=== PATIENT | female | born 1965 | race Two or more races ===

== ENCOUNTER 2017-07-13 11:14 | Outpatient (CLI) | payer OTHER | END 2017-07-13 11:24 | disposition home or self-care (01) | LOC: LAB 11:14 | DX: D50.9 Iron deficiency anemia, unspecified (principal); E03.8 Other specified hypothyroidism; E78.2 Mixed hyperlipidemia; I11.9 Hypertensive heart disease without heart failure; E56.8 Deficiency of other vitamins; N39.0 Urinary tract infection, site not specified; Z12.11 Encounter for screening for malignant neoplasm of colon; R19.5 Other fecal abnormalities; E55.9 Vitamin D deficiency, unspecified; N19 Unspecified kidney failure; R80.9 Proteinuria, unspecified ==

== ENCOUNTER 2017-07-13 11:32 | Outpatient (CLI) | payer OTHER | END 2017-07-13 11:39 | disposition home or self-care (01) | LOC: RAD 11:32 | DX: I11.9 Hypertensive heart disease without heart failure (principal) ==

== ENCOUNTER 2017-11-20 06:16 | Outpatient (CLI) | payer OTHER | END 2017-11-20 07:31 | disposition home or self-care (01) | LOC: LAB 06:16 | DX: E05.80 Other thyrotoxicosis without thyrotoxic crisis or storm (principal) ==

== ENCOUNTER 2018-02-01 09:44 | Outpatient (CLI) | payer OTHER | END 2018-02-01 14:08 | disposition home or self-care (01) | LOC: LAB 09:44 | DX: E55.9 Vitamin D deficiency, unspecified (principal); N80.3 Endometriosis of pelvic peritoneum; N83.201 Unspecified ovarian cyst, right side; C56.9 Malignant neoplasm of unspecified ovary; N83.202 Unspecified ovarian cyst, left side ==

== ENCOUNTER 2018-02-08 08:48 | Outpatient (CLI) | payer OTHER | END 2018-02-08 09:02 | disposition home or self-care (01) | LOC: SONOGRAMA 08:48 → MAMO-SONO 09:45 | DX: N94.6 Dysmenorrhea, unspecified (principal); D25.1 Intramural leiomyoma of uterus ==

== ENCOUNTER 2018-07-02 14:29 | Outpatient (CLI) | payer OTHER | END 2018-07-02 14:42 | disposition home or self-care (01) | LOC: LAB 14:29 | DX: Z11.3 Encounter for screening for infections with a predominantly sexual mode of transmission (principal) ==

== ENCOUNTER → 2018-10-28 | Outpatient (CLI) | payer OTHER | END | disposition home or self-care (01) | LOC: MAMO-SONO 13:15 → RAD 13:39 → SONOGRAMA 13:39 | DX: K59.04 Chronic idiopathic constipation (principal); R10.30 Lower abdominal pain, unspecified; N83.00 Follicular cyst of ovary, unspecified side; N94.6 Dysmenorrhea, unspecified; D25.9 Leiomyoma of uterus, unspecified ==

== ENCOUNTER 2019-03-19 08:25 | Outpatient (CLI) | payer OTHER | END 2019-03-20 06:10 | disposition home or self-care (01) | LOC: MAMO-SONO 08:25 | DX: N64.51 Induration of breast (principal); Z12.31 Encounter for screening mammogram for malignant neoplasm of breast; Z87.898 Personal history of other specified conditions ==

== ENCOUNTER → 2019-03-21 12:04 | Outpatient (CLI) | payer OTHER | END | disposition home or self-care (01) | LOC: LAB 12:04 | DX: N92.5 Other specified irregular menstruation (principal); N95.1 Menopausal and female climacteric states ==

== ENCOUNTER 2019-09-12 08:36 | Outpatient (CLI) | payer OTHER | END 2019-09-12 12:30 | disposition home or self-care (01) | LOC: LAB 08:36 | DX: Z20.820 Contact with and (suspected) exposure to varicella (principal); Z20.5 Contact with and (suspected) exposure to viral hepatitis ==

== ENCOUNTER 2020-01-28 14:41 | Outpatient (CLI) | payer OTHER | END 2020-01-28 14:47 | disposition home or self-care (01) | LOC: LAB 14:41 | DX: E55.9 Vitamin D deficiency, unspecified (principal); Z78.0 Asymptomatic menopausal state; N83.209 Unspecified ovarian cyst, unspecified side; E05.00 Thyrotoxicosis with diffuse goiter without thyrotoxic crisis or storm; N80.3 Endometriosis of pelvic peritoneum; N39.0 Urinary tract infection, site not specified ==

== ENCOUNTER → 2020-02-04 10:00 | Outpatient (CLI) | payer OTHER | END | disposition home or self-care (01) | LOC: PPH VACUNA 10:00 | DX: Z23 Encounter for immunization (principal) ==

== ENCOUNTER → 2020-02-05 | Outpatient (CLI) | payer OTHER | END | disposition home or self-care (01) | LOC: SONOGRAMA 10:10 | DX: N92.0 Excessive and frequent menstruation with regular cycle (principal); N83.00 Follicular cyst of ovary, unspecified side; N94.4 Primary dysmenorrhea ==

== ENCOUNTER 2020-09-27 06:23 | Outpatient (CLI) | payer OTHER | END 2020-09-27 06:27 | disposition home or self-care (01) | LOC: LAB 06:23 | DX: Z20.828 Contact with and (suspected) exposure to other viral communicable diseases (principal) ==

== ENCOUNTER → 2020-12-28 06:12 | Outpatient (CLI) | payer OTHER | END | disposition home or self-care (01) | LOC: LAB 06:12 | DX: N95.1 Menopausal and female climacteric states (principal); N80.3 Endometriosis of pelvic peritoneum; N83.209 Unspecified ovarian cyst, unspecified side; E05.00 Thyrotoxicosis with diffuse goiter without thyrotoxic crisis or storm; E55.9 Vitamin D deficiency, unspecified ==

== ENCOUNTER 2021-01-03 12:34 | Outpatient (CLI) | payer OTHER | END 2021-01-03 14:13 | disposition home or self-care (01) | LOC: MAMO-SONO 12:34 | DX: N64.51 Induration of breast (principal); Z12.31 Encounter for screening mammogram for malignant neoplasm of breast; D25.9 Leiomyoma of uterus, unspecified ==

== ENCOUNTER → 2021-02-07 | Outpatient (CLI) | payer OTHER | END | disposition home or self-care (01) | LOC: PPH VACUNA 08:00 | PROVIDERS: ATTEND Emergency Medicine Pediatric Emergency Medicine | DX: Z23 Encounter for immunization (principal) ==

== ENCOUNTER 2021-02-24 08:00 | Outpatient (CLI) | payer OTHER | END 2021-02-24 08:30 | disposition home or self-care (01) | LOC: PPH VACUNA 08:00 | PROVIDERS: ATTEND Emergency Medicine Pediatric Emergency Medicine | DX: Z23 Encounter for immunization (principal) ==

== ENCOUNTER 2021-11-23 08:37 | Outpatient (CLI) | payer OTHER | END 2021-11-23 08:40 | disposition home or self-care (01) | LOC: LAB 08:37 | DX: U07.1 COVID-19 (principal) ==

== ENCOUNTER 2022-01-24 08:00 | Outpatient (CLI) | payer OTHER | END 2022-01-24 08:05 | disposition home or self-care (01) | LOC: PPH VACUNA 08:00 | PROVIDERS: ATTEND Emergency Medicine Pediatric Emergency Medicine | DX: Z23 Encounter for immunization (principal) ==

== ENCOUNTER 2022-02-20 11:55 | Outpatient (CLI) | payer OTHER | END 2022-02-20 12:09 | disposition home or self-care (01) | LOC: MAMO-SONO 11:55 | DX: N64.51 Induration of breast (principal); Z12.31 Encounter for screening mammogram for malignant neoplasm of breast; N94.6 Dysmenorrhea, unspecified; N83.00 Follicular cyst of ovary, unspecified side; D25.9 Leiomyoma of uterus, unspecified ==

== ENCOUNTER 2022-02-23 06:09 | Outpatient (CLI) | payer OTHER | END 2022-02-23 06:10 | disposition home or self-care (01) | LOC: LAB 06:09 | DX: Z78.0 Asymptomatic menopausal state (principal); E05.00 Thyrotoxicosis with diffuse goiter without thyrotoxic crisis or storm; E55.9 Vitamin D deficiency, unspecified; N95.1 Menopausal and female climacteric states; N80.30 Endometriosis of pelvic peritoneum, unspecified; N83.209 Unspecified ovarian cyst, unspecified side; E78.9 Disorder of lipoprotein metabolism, unspecified ==

== ENCOUNTER 2022-07-24 09:49 | Emergency (ER) | payer OTHER ==
[~2022-07-24] VITALS: Ht 170.2 cm; Wt 74.8 kg
[2022-07-24] MEDS ORDERED: DICLOFENAC POTA50 MG PO (11:20)
[2022-07-24] MEDS ORDERED: CYCLOBENZAPRINE10 MG PO (11:20)
== END 2022-07-24 11:37 | disposition home or self-care (01) ==
LOC: ER 09:49
DX: M54.50 Low back pain, unspecified (principal)

== ENCOUNTER → 2023-01-10 | Outpatient (CLI) | payer OTHER ==
[~2023-01-10] MED LIST: CYCLOBENZAPRINE10 MG PO; DICLOFENAC POTA50 MG PO
== END | disposition home or self-care (01) ==
LOC: PPH VACUNA
PROVIDERS: ATTEND Emergency Medicine Pediatric Emergency Medicine
DX: Z23 Encounter for immunization (principal)
CPT/HCPCS: 90686; G0008

== ENCOUNTER 2023-02-28 13:54 | Outpatient (CLI) | payer OTHER | END 2023-02-28 14:30 | disposition home or self-care (01) | LOC: MAMO-SONO 13:54 | DX: Z12.31 Encounter for screening mammogram for malignant neoplasm of breast (principal); N64.51 Induration of breast; N94.6 Dysmenorrhea, unspecified; N83.00 Follicular cyst of ovary, unspecified side; D25.9 Leiomyoma of uterus, unspecified ==

== ENCOUNTER 2023-03-01 06:10 | Outpatient (CLI) | payer OTHER ==
[2023-03-01 07:23] LABS: HEMATOCRIT 40.7 % (36.0-45.00); HEMOGLOBIN 13.9 g/dL (12.0-15.00); MEAN CELL VOLUME 87.4 fL (80.00-100.00); MEAN CORPUSCULAR HEMOGLOBIN 29.8 pg (27.00-32.0); MEAN CORPUSCULAR HGB CONC 34.1 g/dl (32.0-36.0); PLATELET COUNT 230 K/uL (150-450); RED BLOOD COUNT 4.66 M/uL (4.00-6.00); RED CELL DISTRIBUTION WIDTH 12.7 % (11.5-14.5)
[2023-03-01 07:45] LABS: URINE APPEARANCE Clear; URINE BILIRRUBIN Negative (NEGATIVE); URINE BLOOD Negative; URINE COLOR Yellow; URINE GLUCOSE Negative (NEGATIVE); URINE LEUKOCYTE Negative; URINE NITRATE Negative; URINE PROTEIN Negative (NEGATIVE); URINE UROBILINOGEN 0.2 E.U./dl
[2023-03-01 07:50] LABS: URINE BACTERIA 336.1 uL (0.0-1933); URINE EPITHELIAL CELLS 6.3 uL (0.0-38.8); URINE RBC 7.6 uL (0.0-20.8); URINE WBC 5.5 uL (0.0-23.2)
[2023-03-01 08:12] LABS: ALBUMIN 4.1 gm/dL (3.4-5.0); BILIRUBIN TOTAL 0.63 mg/dL (0.3-1.2); CALCIUM 9.1 mg/dL (8.5-10.1); CHOL HDL RATIO 3.1 (0-5.0); CREATININE SERUM 0.76 mg/dL (0.55-1.02); GFR 78.72; GLOBULINA 3.6 G/DL (2.4-3.5); POTASSIUM 4.31 mEq/L (3.5-5.1); T4 FREE 0.88 NG/ML (0.76-1.46); TOTAL PROTEIN 7.7 gm/dL (6.4-8.2); TSH 0.433 uIU/mL (0.358-3.74)
== END 2023-03-01 06:11 | disposition home or self-care (01) ==
LOC: LAB 06:10
DX: D50.0 Iron deficiency anemia secondary to blood loss (chronic) (principal); E05.00 Thyrotoxicosis with diffuse goiter without thyrotoxic crisis or storm; E55.9 Vitamin D deficiency, unspecified; N95.1 Menopausal and female climacteric states; N83.209 Unspecified ovarian cyst, unspecified side; E78.9 Disorder of lipoprotein metabolism, unspecified

== ENCOUNTER 2023-06-13 13:20 | Outpatient (CLI) | payer OTHER | END 2023-06-13 23:00 | disposition home or self-care (01) | LOC: LAB 13:20 | DX: N95.1 Menopausal and female climacteric states (principal) ==

== ENCOUNTER 2024-02-14 12:00 | Outpatient (CLI) | payer OTHER | END 2024-02-14 12:15 | disposition home or self-care (01) | LOC: PPH VACUNA 12:00 | PROVIDERS: ATTEND Emergency Medicine Pediatric Emergency Medicine | DX: Z23 Encounter for immunization (principal) ==

== ENCOUNTER 2024-03-04 11:33 | Outpatient (CLI) | payer OTHER | END 2024-03-04 14:21 | disposition home or self-care (01) | LOC: MAMO-SONO 11:33 | DX: N64.51 Induration of breast (principal); Z12.31 Encounter for screening mammogram for malignant neoplasm of breast ==

== ENCOUNTER 2024-06-09 12:01 | Outpatient (CLI) | payer OTHER | END 2024-06-09 13:57 | disposition home or self-care (01) | LOC: MRI 12:01 | PROVIDERS: ATTEND Orthopaedic Surgery | DX: M25.561 Pain in right knee (principal) | CPT/HCPCS: 73721 ==

== ENCOUNTER 2025-03-18 13:30 | Outpatient (CLI) | payer OTHER | END 2025-03-18 13:40 | disposition home or self-care (01) | LOC: PPH VACUNA 13:30 | PROVIDERS: ATTEND Emergency Medicine Pediatric Emergency Medicine | DX: Z23 Encounter for immunization (principal) ==

== ENCOUNTER → 2025-03-23 | Outpatient (CLI) | payer OTHER | END | disposition home or self-care (01) | LOC: MAMO-SONO 10:35 | DX: R92.2 Inconclusive mammogram (principal); N64.51 Induration of breast; Z12.31 Encounter for screening mammogram for malignant neoplasm of breast ==

== ENCOUNTER 2025-03-27 07:31 | Outpatient (CLI) | payer OTHER ==
[2025-03-27 08:57] LABS: BASO % 1.3 % (0.1-1.2); EOS # 0.10 (0.04-0.54); EOS % 2.2 % (0.7-7.0); LYMPH # 1.80 (1.18-3.74); LYMPH % 39.1 % (19.3-53.1); MEAN PLATELET VOLUME 9.90 fl (9.4-12.4); MONO # 0.37 (0.24-0.82); MONO % 8.0 % (4.7-12.5); NEUT # 2.26 (1.56-6.13); NEUT % 49.2 % (34.0-71.1); RED CELL DISTRIBUTION WIDTH 11.6 % (11.6-14.4)
[2025-03-27 11:15] LABS: BUN CREA RATIO 16.0 (7.0-25.0); CHOL HDL RATIO 2.9 (0-5.0); CREATININE SERUM 0.75 mg/dL (0.55-1.02); GFR 79.37; GLUCOSE FASTING 74.0 mg/dL (65-100); HDL 49.0 mg/dl (40-60); LDL 87.0 mg/dl (0-130); OSMOLALITY SERUM 280.0 MOSM/KG (275-295); T4 FREE 0.94 NG/ML (0.76-1.46); TSH 0.632 uIU/mL (0.358-3.74); VLDL 8.0 (0-39)
[2025-03-30 10:10] LABS: CA 125 5.0 U/mL (0.0-38.1); LEUTEINIZING HORMONE 21.2 mIU/mL (.)
== END 2025-03-27 07:34 | disposition home or self-care (01) ==
LOC: LAB 07:31
DX: E55.9 Vitamin D deficiency, unspecified (principal); N95.1 Menopausal and female climacteric states; N80.30 Endometriosis of pelvic peritoneum, unspecified; N83.209 Unspecified ovarian cyst, unspecified side; E05.00 Thyrotoxicosis with diffuse goiter without thyrotoxic crisis or storm; Z78.0 Asymptomatic menopausal state; E78.9 Disorder of lipoprotein metabolism, unspecified; R97.1 Elevated cancer antigen 125 [CA 125]; R97.0 Elevated carcinoembryonic antigen [CEA]; G89.3 Neoplasm related pain (acute) (chronic); I10 Essential (primary) hypertension